=== PATIENT | male | born 1995 | race African-American/Black ===

== ENCOUNTER 2017-12-07 18:53 | Observation (INO) | payer SELFPAY ==
[~2017-12-07] VITALS: Ht 177.8 cm; Wt 63.5 kg
[2017-12-07] MEDS ORDERED: TETANUS,DIPTH,PERTUSS P/F (BOOSTRIX) 0.5 ML VIAL IM ONE (19:15)
[2017-12-07 19:27] LABS: HEMOGLOBIN 15.2 G/DL (13.3-17.7); MEAN PLATELET VOLUME 11.2 FL (7.4-10.4); RED BLOOD COUNT 4.92 10^6/uL (4.35-5.85); RED CELL DISTRIBUTION WIDTH 12.7 % (10.0-14.5); WHITE BLOOD COUNT 10.7 10^3/uL (4.3-11.0)
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
[2017-12-07] MEDS ORDERED: fentaNYL INJECTION 100 MCG/2 ML AMP IVP ONE ×2 (19:45→21:00)
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
[2017-12-07] MEDS ORDERED: CLINDAMYCIN 900 MG/50 ML IVPB 50 ML IV ONE (20:00)
[2017-12-07 20:02] LABS: ALANINE AMINOTRANSFERASE 12 U/L (0-55); ALBUMIN 4.5 GM/DL (3.2-4.5); ALKALINE PHOSPHATASE 59 U/L (40-136); BILIRUBIN,DIRECT 0.3 MG/DL (0.0-0.3); BILIRUBIN,INDIRECT 0.3 MG/DL; BILIRUBIN,TOTAL 0.6 MG/DL (0.1-1.0); BUN/CREATININE RATIO 7; CALCIUM 9.8 MG/DL (8.5-10.1); CARBON DIOXIDE 23 MMOL/L (21-32); CHLORIDE 105 MMOL/L (98-107); GFR ESTIMATED > 60; GLUCOSE 105 MG/DL (70-105); POTASSIUM 3.7 MMOL/L (3.6-5.0); SODIUM 141 MMOL/L (135-145); TOTAL PROTEIN 7.8 GM/DL (6.4-8.2)
--- NOTE | 2017-12-07 20:26 | Diagnostic Imaging Report ---
INDICATION: Fracture. FINDINGS: The right mandibular fractures are aligned anatomically. IMPRESSION: No displacement of right mandibular fracture lines. Dictated by: Dictated on workstation # [id number]
[2017-12-07] MEDS ORDERED: LIDOCAINE 1% INJ 50 ML (XYLOCAINE) VIAL ONE (20:57)
[2017-12-07] MEDS ORDERED: LIDOCAINE 1% INJ 50 ML (XYLOCAINE) VIAL IJ ONE (21:00)
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
[2017-12-07 22:00] VITALS: BP 139/109
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
[2017-12-07] MEDS ORDERED: ONDANSETRON 4 MG/2 ML (SDV) Z0FRAN IV PRN (22:30)
[2017-12-07] MEDS: fentaNYL INJECTION 100 MCG/2 ML AMP IV PRN (22:48)
[2017-12-07] MEDS: D5 1/2 NS 1000 ML IV SOLUTION 1,000 ML IV SCH (22:49)
[2017-12-07 23:00] VITALS: BP 128/92
[2017-12-08] VITALS (10 sets, daily range): BP systolic 96–130; BP diastolic 63–91
[2017-12-08] MEDS: fentaNYL INJECTION 100 MCG/2 ML AMP IV PRN ×3 (01:00→08:47)
[2017-12-08 03:36] LABS: BASOPHILS % (AUTO) 0 % (0-10); EOSINOPHILS # (AUTO) 0.1 10^3/uL (0.0-0.3); EOSINOPHILS % (AUTO) 1 % (0-10); HEMATOCRIT 41 % (40-54); HEMOGLOBIN 14.8 G/DL (13.3-17.7); LYMPHOCYTES # (AUTO) 1.4 X 10^3 (1.0-4.0); LYMPHOCYTES % (AUTO) 10 % (12-44); MEAN CORPUSCULAR HEMOGLOBIN 31 PG (25-34); MEAN CORPUSCULAR HGB CONC 36 G/DL (32-36); MEAN CORPUSCULAR VOLUME 86 FL (80-99); MEAN PLATELET VOLUME 11.1 FL (7.4-10.4); MONOCYTES # (AUTO) 1.5 X 10^3 (0.0-1.0); MONOCYTES % (AUTO) 10 % (0-12); NEUTROPHILS # (AUTO) 11.5 X 10^3 (1.8-7.8); NEUTROPHILS % (AUTO) 80 % (42-75); PLATELET COUNT 247 10^3/uL (130-400); RED BLOOD COUNT 4.81 10^6/uL (4.35-5.85); RED CELL DISTRIBUTION WIDTH 12.4 % (10.0-14.5); WHITE BLOOD COUNT 14.5 10^3/uL (4.3-11.0)
[2017-12-08 03:54] LABS: BUN/CREATININE RATIO 8; CALCIUM 9.1 MG/DL (8.5-10.1); CARBON DIOXIDE 23 MMOL/L (21-32); CHLORIDE 102 MMOL/L (98-107); CREATININE SERUM 1.02 MG/DL (0.60-1.30); GFR ESTIMATED > 60; GLUCOSE 134 MG/DL (70-105); MAGNESIUM 2.1 MG/DL (1.8-2.4); PHOSPHORUS 3.5 MG/DL (2.3-4.7); POTASSIUM 3.7 MMOL/L (3.6-5.0); SODIUM 137 MMOL/L (135-145)
[2017-12-08] MEDS ORDERED: CLINDAMYCIN 900 MG/6ML (CLEOCIN) VIAL IV SCH (05:00)
[2017-12-08] MEDS ORDERED: CLINDAMYCIN 900 MG/50 ML IVPB 50 ML IV ONE (05:01)
[2017-12-08] MEDS ORDERED: KCL 20 MEQ TAB (K-DUR) PO SCH (06:00)
[2017-12-08] MEDS ORDERED: MAGNESIUM 1 GM/100 ML IVPB 100 ML IV SCH (06:00)
[2017-12-08] MEDS ORDERED: POTASSIUM CL 10MEQ/50ML IVPB 50 ML IV SCH (06:00)
[2017-12-08] MEDS: D5 1/2 NS 1000 ML IV SOLUTION 1,000 ML IV SCH (06:33)
--- NOTE | 2017-12-08 09:01 | Diagnostic Imaging Report ---
EXAMINATION: Portable erect AP chest at 2:42 AM. INDICATION: Dyspnea. FINDINGS: The heart size is within normal limits and stable when compared to 12/07/2017. The lungs remain clear. There is still no sign of pneumonia or pleural effusion and there is no pulmonary contusion or pneumothorax identified. The mediastinum is not widened. The osseous structures are intact. IMPRESSION: Stable chest. There has been no adverse change since the prior exam. Dictated by: Dictated on workstation # [id number]
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
[2017-12-08] MEDS ORDERED: CLINDAMYCIN 900 MG/50 ML IVPB 50 ML IV SCH (13:00)
[2017-12-08] MEDS ORDERED: HYDR-3454 PO (13:53)
[2017-12-08] MEDS ORDERED: CLIN300C11 PO (13:53)
[2017-12-08] MEDS ORDERED: HYDROcodone/APAP 5 MG/325 MG (LORTAB) TAB ONE (13:54)
[2017-12-08] MEDS ORDERED: HYDROcodone/APAP 5 MG/325 MG (LORTAB) TAB PO NR (14:00)
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
== END 2017-12-08 13:15 | disposition home or self-care (01) ==
LOC: ER 18:55 → UNDOADMOB 21:28 → ICU 21:28 → UNDODISOB 12-08 14:50
PROVIDERS: ADMIT Surgery; ATTEND Surgery
DX: S06.0X9A Concussion with loss of consciousness of unspecified duration, initial encounter (principal); S02.602B Fracture of unspecified part of body of left mandible, initial encounter for open fracture; S02.5XXA Fracture of tooth (traumatic), initial encounter for closed fracture; S01.81XA Laceration without foreign body of other part of head, initial encounter; Y00.XXXA Assault by blunt object, initial encounter; F17.210 Nicotine dependence, cigarettes, uncomplicated; R40.2410 Glasgow coma scale score 13-15, unspecified time; Z23 Encounter for immunization
CPT/HCPCS: 36415; 40654; 70355; 70450; 70486; 71045; 72125; 72170; 80048; 80076; 80320; 83735; 84100; 85025; 85027; 87081; 90471; 90715; 93041; 96365; 96375; 96376; G0378

== ENCOUNTER 2018-01-19 03:29 | Emergency (ER) | payer SELFPAY ==
[~2018-01-19] VITALS: Ht 177.8 cm; Wt 68.0 kg
[~2018-01-19 03:29] MED LIST: CLIN300C11 PO; HYDR-3454 PO
[2018-01-19] MEDS ORDERED: KETOROLAC 60 MG/2 ML VIAL IM ONE (04:45)
[2018-01-19] MEDS ORDERED: ORPHENADRINE 60 MG/2 ML (NORFLEX) AMP IM ONE (04:45)
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
--- NOTE | 2018-01-19 05:33 | Diagnostic Imaging Report ---
INDICATION: Fall. Back pain. COMPARISON: Fall. Lower back pain. FINDINGS: Frontal and lateral views of the lumbar spine were obtained. AP static alignment and vertebral heights are maintained. There is no fracture or destructive process. Note is made of prominent buckling of the anterior cortex of the lower sacrum, only well-visualized on the lateral views. Limited views of the abdomen demonstrate nonobstructive bowel gas pattern. IMPRESSION: 1. No acute fracture or dislocation of the lumbar spine. 2. Prominent buckling of the anterior cortex of the lower sacrum suspicious for potential sacral fracture. Dictated by: Dictated on workstation # [id number]
--- NOTE | 2018-01-19 05:43 | Diagnostic Imaging Report ---
INDICATION: Fall. Lower back pain. COMPARISON: 12/07/2017 FINDINGS: Two frontal radiographic views of the sacrum and coccyx were obtained. No acute osseous abnormalities are seen on these frontal views. Note is made of prominent buckling of the anterior cortex of the lower sacrum identified on lateral view of the pelvis from lumbar spine exam obtained same day. No unexpected radiopaque foreign bodies are seen. SI joints are symmetric. Pubic symphysis is within normal limits. IMPRESSION: 1. Prominent buckling of the anterior cortex of the sacrum identified on separate lumbar radiograph is again noted and is concerning for potential sacral fracture. Dictated by: Dictated on workstation # [id number]
[2018-01-19] MEDS ORDERED: TRAM-42 PO (06:12)
[2018-01-19] MEDS ORDERED: CYCL10TA9 PO (06:12)
[2018-01-19 06:18] VITALS: BP 119/71
--- NOTE | 2018-01-19 07:43 | Diagnostic Imaging Report ---
PROCEDURE: CT pelvis without contrast. TECHNIQUE: Multiple contiguous axial images were obtained through the pelvis without the use of intravenous contrast. Sagittal and coronal reformations were performed. INDICATION: Fall. Pain to tailbone. FINDINGS: There is a transverse fracture in the lower third of the sacrum on the left. There is no displacement noted. SI joints are symmetrical. Coccyx is intact. Iliac wings are intact. Pubic rami are intact. Femoral head show normal articulation. IMPRESSION: Horizontal fracture through the lower third of the sacrum left of midline without displacement. Dictated by: Dictated on workstation # [id number]
== END 2018-01-19 06:15 | disposition home or self-care (01) ==
LOC: EDUNIT# 03:29 → ER 03:39
DX: S32.19XA Other fracture of sacrum, initial encounter for closed fracture (principal); F17.210 Nicotine dependence, cigarettes, uncomplicated; Z87.81 Personal history of (healed) traumatic fracture; W01.198A Fall on same level from slipping, tripping and stumbling with subsequent striking against other object, initial encounter
CPT/HCPCS: 72100; 72192; 72220; 96372

== ENCOUNTER 2019-06-15 09:31 | Emergency (ER) | payer SELFPAY ==
[~2019-06-15] VITALS: Ht 175 cm; Wt 72.7 kg
[~2019-06-15 09:31] MED LIST changes: +CYCL10TA9 PO; -HYDR-3454 PO; +HYDR-3455 PO; +TRAM-42 PO
[2019-06-15 10:03] LABS: BILIRUBIN,URINE NEGATIVE (NEGATIVE); CLARITY,URINE CLEAR; COLOR,URINE YELLOW; GLUCOSE, URINE (UA) NEGATIVE (NEGATIVE); KETONES,URINE NEGATIVE (NEGATIVE); LEUKOCYTE ESTERASE ,URINE NEGATIVE (NEGATIVE); NITRITE,URINE NEGATIVE (NEGATIVE); PROTEIN,URINE NEGATIVE (NEGATIVE)
[2019-06-15 10:10] LABS: BACTERIA,URINE NEGATIVE /HPF
[2019-06-15 10:23] LABS: AMPHETAMINE SCREEN, URINE POSITIVE (NEGATIVE); BARBITURATE SCREEN URINE NEGATIVE (NEGATIVE); BENZODIAZEPINES SCREEN URINE NEGATIVE (NEGATIVE); CANNABINOID SCREEN, URINE POSITIVE (NEGATIVE); COCAINE SCREEN URINE NEGATIVE (NEGATIVE); METHADONE STAT NEGATIVE (NEGATIVE); METHAMPHETAMINE SCREEN URINE S POSITIVE (NEGATIVE); OPIATE SCREEN URINE NEGATIVE (NEGATIVE); OXYCODONE STAT NEGATIVE (NEGATIVE); PROPOXYPHENE STAT NEGATIVE (NEGATIVE); TRICYCLIC ANTIDEPRESSANTS SCRE NEGATIVE (NEGATIVE)
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
[2019-06-15 11:14] LABS: BASOPHILS # (AUTO) 0.1 10^3/uL (0.0-0.1); BASOPHILS % (AUTO) 1 % (0-10); EOSINOPHILS # (AUTO) 0.7 10^3/uL (0.0-0.3); EOSINOPHILS % (AUTO) 11 % (0-10); HEMATOCRIT 42 % (40-54); HEMOGLOBIN 14.4 G/DL (13.3-17.7); LYMPHOCYTES # (AUTO) 1.7 X 10^3 (1.0-4.0); LYMPHOCYTES % (AUTO) 28 % (12-44); MEAN CORPUSCULAR HEMOGLOBIN 29 PG (25-34); MEAN CORPUSCULAR HGB CONC 34 G/DL (32-36); MEAN CORPUSCULAR VOLUME 84 FL (80-99); MEAN PLATELET VOLUME 10.4 FL (7.4-10.4); MONOCYTES % (AUTO) 16 % (0-12); NEUTROPHILS # (AUTO) 2.7 X 10^3 (1.8-7.8); NEUTROPHILS % (AUTO) 45 % (42-75); PLATELET COUNT 283 10^3/uL (130-400); WHITE BLOOD COUNT 6.1 10^3/uL (4.3-11.0)
[2019-06-15 11:33] LABS: ALANINE AMINOTRANSFERASE 41 U/L (0-55); ALBUMIN 4.3 GM/DL (3.2-4.5); ALKALINE PHOSPHATASE 67 U/L (40-136); BILIRUBIN,TOTAL 0.4 MG/DL (0.1-1.0); BUN/CREATININE RATIO 10; CARBON DIOXIDE 28 MMOL/L (21-32); CHLORIDE 103 MMOL/L (98-107); CREATININE SERUM 1.04 MG/DL (0.60-1.30); GFR ESTIMATED > 60; GLUCOSE 92 MG/DL (70-105); POTASSIUM 3.7 MMOL/L (3.6-5.0); SODIUM 142 MMOL/L (135-145); TOTAL PROTEIN 7.4 GM/DL (6.4-8.2)
--- NOTE | 2019-06-15 12:06 | Diagnostic Imaging Report ---
PROCEDURE: CT head without contrast. TECHNIQUE: Multiple contiguous axial images were obtained through the brain without the use of intravenous contrast. Auto Exposure Controls were utilized during the CT exam to meet ALARA standards for radiation dose reduction. INDICATION: Seizures. COMPARISON: No prior studies are available for comparison. FINDINGS: Ventricles and sulci are within normal limits. No sulcal effacement, midline shift or hemorrhage is detected. Cisterns are patent. Visualized paranasal sinuses are clear. IMPRESSION: No acute intracranial process is detected. Dictated by: Dictated on workstation # [id number]
--- NOTE | 2019-06-15 12:15 | Diagnostic Imaging Report ---
INDICATION: Seizures. Time of exam 11:55 AM Correlation is made with prior chest from 12/08/2017. The heart size is normal. The pulmonary vascularity is unremarkable. The lungs are clear. No infiltrate, effusion or pneumothorax is detected. Impression: No acute cardiopulmonary process is detected. Dictated by: Dictated on workstation # [id number]
[2019-06-15 13:05] VITALS: BP 115/80
== END 2019-06-15 13:05 | disposition home or self-care (01) ==
LOC: EDUNIT# 09:31 → ER 09:33
DX: R29.818 Other symptoms and signs involving the nervous system (principal); F17.210 Nicotine dependence, cigarettes, uncomplicated
CPT/HCPCS: 36415; 70450; 71045; 80053; 80306; 81000; 83880; 84484; 85025; 93005; 93306